=== PATIENT | female | born 1960 | race Caucasian/White ===

== ENCOUNTER 2018-10-12 20:43 | Emergency (ER) | payer BC ==
[~2018-10-12] VITALS: Ht 162.6 cm; Wt 111.1 kg
[~2018-10-12 20:43] MED LIST: IBUPROFEN 800800 MG PO; NORCO 5-325 TA1 EACH PO
[2018-10-12 22:20] VITALS: BP 153/94
== END 2018-10-12 22:20 | disposition home or self-care (01) ==
LOC: M.ERS 20:43
DX: S93.402A Sprain of unspecified ligament of left ankle, initial encounter (principal); W19.XXXA Unspecified fall, initial encounter; Y93.89 Activity, other specified; Y92.89 Other specified places as the place of occurrence of the external cause; Y99.8 Other external cause status; Z98.890 Other specified postprocedural states

== ENCOUNTER → 2018-10-19 | Outpatient (CLI) | payer BC | LOC: M.RAD 13:47 | DX: S99.912D Unspecified injury of left ankle, subsequent encounter (principal); M25.572 Pain in left ankle and joints of left foot; X58.XXXD Exposure to other specified factors, subsequent encounter ==